=== PATIENT | male | born 1990 | race Caucasian/White ===

== ENCOUNTER 2018-11-11 03:06 | Emergency (ER) | payer OTHER ==
[~2018-11-11] VITALS: Ht 193 cm; Wt 111.1 kg
[2018-11-11 03:10] VITALS: Ht 193 cm; Wt 111.1 kg
[2018-11-11 04:57] VITALS: BP 121/76
== END 2018-11-11 04:58 | disposition home or self-care (01) ==
LOC: ED 03:06
DX: K08.89 Other specified disorders of teeth and supporting structures (principal)